=== PATIENT | female | born 1965 | race Caucasian/White ===

== ENCOUNTER → 2017-11-01 | Outpatient (CLI) | payer MEDICAID ==
[2016-07-11 12:14] VITALS: BMI 24.3
[~2017-11-01] MED LIST: ACE325 PO; ACE500 PO; ACET-1966 PO; ALB6.7R INH; ASCO100T PO; ASCO500C8 PO; ASP81 PO; ASPI-1441 PO; BACDS PO; CETI-176 PO; CIP500 PO; CIPR100T4 PO; CLI150 PO; CLIN-1 PO; DIP25 PO; DM H PO; DOC240 PO; DOCU-416 PO; ESCI5TAB10 PO; EUCA170O5 TP; FOL1 PO; FOLI-68 PO; GUAI-225 PO; GUAI600T48 PO; HYDR50CA47 PO; IBU200 PO; IBU600 PO; IBUP-1671 PO; LEVO500T PO; LID5T TOP; LOR1 PO; LOR10 PO; LOR2I IV; LOR5 PO; LORA-1221 PO; LORA-633 PO; MAG-65 PO; MELA3TAB31 PO; MIRT-18 PO; MOMR; MULT-1319 PO; MULT-7 PO; MULT1CAP41 PO; MULT1CAP59 PO; MYLL PO; NAPR-1043 PO; NIC10R INH; NYQUIL; OLA5 PO; OLAN10TA19 PO; PAN40 PO; PHEN30SP NS; PRO20 PO; PRO25 PO; PROC10TA95 PO; PROM12.546 PO; PROP10TA58 PO; PROP1VIA IV; PROVENTIL MDI; QUET25TA30 PO; QUET50TA21 PO; RISP-29 PO; RISP-32 PO; RISP-34 PO; RISP0.5T82 PO; RONDEC DM; SALSP; SER50 PO; SUC1 PO; SUCR1TAB51 PO; SULF-170 PO; SULF-198 PO; THIA100T2 PO; URISTAT; ZOL5 PO; [UNRECOGNIZED DRUG - CODE] PO
== END ==
LOC: LAB 14:56
PROVIDERS: ATTEND Nurse Practitioner Family
DX: E03.9 Hypothyroidism, unspecified (principal); N18.9 Chronic kidney disease, unspecified
CPT/HCPCS: 36415; 82040; 82247; 82310; 82374; 82435; 82565; 82947; 84075; 84132; 84155; 84295; 84443; 84450; 84460; 84520

== ENCOUNTER → 2017-11-25 | Outpatient (REF) | payer MEDICAID ==
[2016-07-11 12:14] VITALS: BMI 24.3
== END ==
LOC: ZZSTITCHES 16:09
PROVIDERS: ATTEND Physician Assistant
DX: N39.0 Urinary tract infection, site not specified (principal)
CPT/HCPCS: 87088

== ENCOUNTER 2017-11-29 01:27 | Emergency (ER) | payer MEDICAID ==
[2016-07-11 12:14] VITALS: Wt 67.1 kg
[2017-11-29] MEDS ORDERED: CIPR-214 PO (01:42)
[2017-11-29] MEDS ORDERED: RISP3TAB55 PO (01:42)
--- NOTE | 2017-11-29 01:44 | ER Report ---
History and Physical Time Seen By MD: 01:39 Hx. of Stated Complaint: patient started having heart palpatations around 0100; patient had taken trazodone around 2000 patient states that she doesnt think it was working so took a second trazodone around 2130; patient states that she had a bad dream and woke up 1230 and "heart was racing". HPI/ROS CHIEF COMPLAINT: racing heart HISTORY OF PRESENT ILLNESS: This is a 52 year old female. She came to the ER tonight because of a racing heart. She was thinking that it may be due to a new medicine. She took Trazodone for the first time tonight. The dose is 50mg. She took a second dose tonight prior to going to bed because she did not feel like it was working. First does at 2000 hours, second dose at 2130 hours. She slept, but had a very bad dream and awoke from this with her heart racing. She does get very bad dreams and night terrors. The heart rate did not slow down. She says this same thing has happened in the past. Because of her schizoaffective disorder and anxiety. She has been on both Propranolol and Ativan in the past. Stated that the Propranolol made her heart race faster, and only worked with the addition of Ativan. She says than no one will prescribe her Ativan anymore. She is having a little bit of discomfort in her shoulder and chest. She is not short of breath. REVIEW OF SYSTEMS: Constitutional: No fever or chills. Eyes: No vision changes. ENT: No sore throat. No congestion. Cardiovascular: As above. Respiratory: No cough. Gastrointestinal: No abdominal pain. No nausea or vomiting. Genitourinary: No dysuria. Musculoskeletal: No back pain. Skin: No rashes. Neurological: No numbness. No weakness. Allergies: Coded Allergies: Penicillins (Verified Allergy, Mild, 11/29/17) codeine (Verified Allergy, Mild, 11/29/17) Home Meds Active Scripts Metoprolol Succinate (METOPROLOL SUCCINATE) 25 Mg Tab.er.24h, 1 TAB PO QDAY, # 30 TAB 0 Refills Prov:MOSES LIZAMA MD 11/29/17 Reported Medications Risperidone (RISPERIDONE) 3 Mg Tablet, 3 MG PO 11/29/17 Ciprofloxacin Hcl (CIPROFLOXACIN HCL) 500 Mg Tablet, 250 MG PO 1-2XD, TAB 11/29/17 Phenylephrine Hcl (NASAL SPRAY) 30 Ml [place], 1 SPRAY NS PRN Y for DISCOMFORT, SPRAY 04/09/17 Ibuprofen (MOTRIN IB) 200 Mg Tablet, 3 TAB PO Q8H Y for PAIN 04/09/17 Discontinued Reported Medications Cetirizine Hcl (ZYRTEC) 10 Mg Tablet, 10 MG PO QDAY, TAB 04/09/17 Hydroxyzine Pamoate (VISTARIL) 50 Mg Capsule, 50-100 MG PO QHS Y for INSOMNIA, CAPSULE 04/09/17 Acetaminophen (TYLENOL) 325 Mg Tablet, 650 MG PO Q4H Y for PAIN, TAB 04/09/17 Risperidone (RISPERDAL M-TAB) 1 Mg Tab.rapdis, 1 MG PO Q6H Y for AGITATION/ PSYCHOSIS 04/09/17 Nicotine (NICOTROL) 10 Mg/Inh Ctr, 10 MG INH PRN Y for NICOTINE REPLACEMENT 04/09/17 Mag Hydrox/Aluminum Hyd/Simeth (Maalox Advanced Suspension) 200 Mg-200 Mg-20 Mg/ 5 Ml Oral.susp, 30 ML PO Q4H Y for DYSPEPSIA 04/09/17 Thiamine Mononitrate (VITAMIN B-1) 100 Mg Tablet, 100 MG PO DAILY 04/09/17 Multivitamin (MULTIVITAMINS) 1 Each Capsule, 1 EACH PO DAILY, CAPSULE 04/09/17 Risperidone (RISPERDAL) 1 Mg Tablet, 1 MG PO QAM 04/09/17 Risperidone (RISPERDAL) 2 Mg Tablet, 2 MG PO QHS 04/09/17 Melatonin (MELATONIN) 3 Mg Tablet, 3 MG PO QHS 04/09/17 Folic Acid (FOLIC ACID) 1 Mg Tablet, 1 MG PO QDAY, TAB 04/09/17 Docusate Sodium (COLACE) 100 Mg Capsule, 100 MG PO BID, CAPSULE 04/09/17 Reviewed Nurses Notes: Yes Hx Smoking: Yes Smoking Status: Current: Every Day Smoker Exposure to Second Hand Smoke?: Yes Hx Substance Use Disorder: Yes Hx Alcohol Use: Yes Constitutional Vital Sign - Last 24 Hours 11/29/17 11/29/17 11/29/17 11/29/17 01:33 01:33 01:57 02:00 Temp 98.3 Pulse 122 109 Resp 19 B/P (MAP) 120/48 120/48 (72) 143/100 (114) Pulse Ox 93 92 O2 Delivery Room Air 11/29/17 11/29/17 11/29/17 11/29/17 02:20 02:30 02:35 03:00 Pulse 102 Resp 11 B/P (MAP) 124/71 (88) 129/91 (104) 122/78 (93) Pulse Ox 88 11/29/17 03:05 Pulse 106 Resp 93 Pulse Ox 92 Physical Exam General Appearance: The patient is alert. No acute distress. Eyes: Pupils are equal, round. Reactive to light. No pallor, injection or icterus. Extraocular movements are intact. ENT: Mucous membranes are moist. Normal oral mucosa. Posterior oropharynx is normal. Normal tympanic membranes and canals. Neck: Supple and non tender. Respiratory: Lungs are clear to auscultation. Cardiovascular: Tachycardia, but regular. On monitor with occasional PVCs. No murmurs, gallops or rubs. Normal capillary refill. Gastrointestinal: Abdomen is soft and non tender. Nondistended. Normal active bowel sounds. Neurological: Alert and oriented x3. No focal neurologic deficits Skin: Warm and dry. Musculoskeletal: Extremities are nontender. DIFFERENTIAL DIAGNOSIS: After history and physical exam, differential diagnosis was considered for tachycardia, possible medication side effect, possible due to night terrors, possibly similar to prior tachycardic events due to anxiety. She is also taking Cipro for a urinary tract infection, just started this medication as well, but symptoms seem to be improving. Medical Decision Making Data Points Result Diagram: 11/29/17 0203 11/29/17 0203 Laboratory Hematology Test 11/29/17 02:03 Red Blood Count 4.40 M/uL (4.17-5.56) Mean Corpuscular Volume 96.6 fL (80.0-96.0) Mean Corpuscular Hemoglobin 33.9 pg (26.0-33.0) Mean Corpuscular Hemoglobin Concent 35.1 g/dL (32.0-36.0) Red Cell Distribution Width 13.8 % (11.5-14.5) Mean Platelet Volume 9.1 fL (7.2-11.1) Neutrophils (%) (Auto) 47.8 % (39.4-72.5) Lymphocytes (%) (Auto) 37.6 % (17.6-49.6) Monocytes (%) (Auto) 8.8 % (4.1-12.4) Eosinophils (%) (Auto) 5.1 % (0.4-6.7) Basophils (%) (Auto) 0.7 % (0.3-1.4) Nucleated RBC Relative Count (auto) 0.0 /100WBC Neutrophils # (Auto) 3.9 K/uL (2.0-7.4) Lymphocytes # (Auto) 3.1 K/uL (1.3-3.6) Monocytes # (Auto) 0.7 K/uL (0.3-1.0) Eosinophils # (Auto) 0.4 K/uL (0.0-0.5) Basophils # (Auto) 0.1 K/uL (0.0-0.1) Nucleated RBC Absolute Count (auto) 0.00 K/uL D-Dimer Quantitative (PE/DVT) 0.49 ug/ml (0-0.50) Sodium Level 139 mmol/L (137-145) Potassium Level 3.7 mmol/L (3.5-5.0) Chloride Level 100 mmol/L (98-107) Carbon Dioxide Level 27 mmol/L (22-31) Blood Urea Nitrogen 16 mg/dl (7-18) Creatinine 1.20 mg/dl (0.52-1.04) Glomerular Filtration Rate Calc 47.6 Random Glucose 99 mg/dl (75-110) Calcium Level 10.1 mg/dl (8.4-10.2) Total Bilirubin 0.4 mg/dl (0.2-1.3) Aspartate Amino Transf (AST/SGOT) 21 U/L (0-35) Alanine Aminotransferase (ALT/SGPT) 24 U/L (0-56) Alkaline Phosphatase 75 U/L (0-126) Troponin I < 0.012 ng/ml Total Protein 7.5 gm/dl (6.3-8.2) Albumin 4.1 g/dl (3.5-5.0) Chemistry Test 11/29/17 02:03 White Blood Count 8.3 k/uL (4.5-11.0) Red Blood Count 4.40 M/uL (4.17-5.56) Hemoglobin 14.9 g/dL (12.0-16.0) Hematocrit 42.5 % (34.0-47.0) Mean Corpuscular Volume 96.6 fL (80.0-96.0) Mean Corpuscular Hemoglobin 33.9 pg (26.0-33.0) Mean Corpuscular Hemoglobin Concent 35.1 g/dL (32.0-36.0) Red Cell Distribution Width 13.8 % (11.5-14.5) Platelet Count 179 K/uL (150-450) Mean Platelet Volume 9.1 fL (7.2-11.1) Neutrophils (%) (Auto) 47.8 % (39.4-72.5) Lymphocytes (%) (Auto) 37.6 % (17.6-49.6) Monocytes (%) (Auto) 8.8 % (4.1-12.4) Eosinophils (%) (Auto) 5.1 % (0.4-6.7) Basophils (%) (Auto) 0.7 % (0.3-1.4) Nucleated RBC Relative Count (auto) 0.0 /100WBC Neutrophils # (Auto) 3.9 K/uL (2.0-7.4) Lymphocytes # (Auto) 3.1 K/uL (1.3-3.6) Monocytes # (Auto) 0.7 K/uL (0.3-1.0) Eosinophils # (Auto) 0.4 K/uL (0.0-0.5) Basophils # (Auto) 0.1 K/uL (0.0-0.1) Nucleated RBC Absolute Count (auto) 0.00 K/uL D-Dimer Quantitative (PE/DVT) 0.49 ug/ml (0-0.50) Glomerular Filtration Rate Calc 47.6 Calcium Level 10.1 mg/dl (8.4-10.2) Total Bilirubin 0.4 mg/dl (0.2-1.3) Aspartate Amino Transf (AST/SGOT) 21 U/L (0-35) Alanine Aminotransferase (ALT/SGPT) 24 U/L (0-56) Alkaline Phosphatase 75 U/L (0-126) Troponin I < 0.012 ng/ml Total Protein 7.5 gm/dl (6.3-8.2) Albumin 4.1 g/dl (3.5-5.0) Coagulation Test 11/29/17 02:03 D-Dimer Quantitative (PE/DVT) 0.49 ug/ml EKG/Imaging EKG Interpretation 12 lead EKG: Rhythm: Sinus tachycardia, rate 106 [place]: normal QRS: normal ST segments: normal Imaging CHEST: Indication: Chest pain and tachycardia. Technique: Frontal and lateral views were obtained. Comparison: None. Skeletal and soft tissue structures: There is minimal dextroscoliosis in the thoracic spine. No acute skeletal deformity is identified. Heart and mediastinum: Within normal limits. Lung rooney: Well-expanded and clear. No focal opacities. Pleural spaces: Unremarkable. Impression: No acute process. Report Dictated By: Gibson Jorge MD at 11/29/2017 2:36 AM ED Course/Re-evaluation Clinical Indication for ER IV: Hydration, IV Access ED Course The patient had an IV started. Labs were obtained. CBC is normal, chemistry panel also shows normal electrolytes. BUN and creatinine slightly elevated at 16 and 1.2. Normal glucose and liver function tests. D-dimer is negative. Troponin is negative. TSH is pending. Obtained and shows simple sinus tachycardia without any other changes. Her chest x-ray was negative for any acute problems as well. She did receive a liter of normal saline. We talked about different possible causes. I would like her to not take the trazodone until she follows up with her regular doctor tomorrow. She does have a scheduled appointment. She will continue the Cipro. I would like to start her on a little dose of metoprolol 25 mg. Decision to Disposition Date: November 29, 2017 Decision to Disposition Time: 03:01 Depart Departure Latest Vital Signs Vital Signs Date Time Temp Pulse Resp B/P (MAP) Pulse Ox O2 Delivery O2 Flow Rate FiO2 11/29/17 03:05 106 93 92 11/29/17 03:00 122/78 (93) 11/29/17 01:33 98.3 Room Air Impression: Primary Impression: Tachycardia Condition: Improved Disposition: HOME OR SELF-CARE Referrals: EWELINA ROTH (PCP) New Scripts Metoprolol Succinate (METOPROLOL SUCCINATE) 25 Mg Tab.er.24h 1 TAB PO QDAY, #30 TAB 0 Refills Prov: MOSES LIZAMA MD 11/29/17 Patient Instructions: Atrial Tachycardia (ED) Additional Instructions: We did not find any major problems tonight. Your heart rate came down to normal, but every once in a while would still run a little high. We would like to have you start a medicine to help slow this down a little. Metoprolol 25mg once a day. Please follow-up with your regular doctor for re-evaluation. Trazodone usually does not cause problems like this. Stop the Trazodone until you can discuss with your doctor whether you should continue this or not. MOSES LIZAMA MD November 29, 2017 01:44
[2017-11-29 02:20] LABS: PLATELET COUNT, AUTOMATED 179 K/uL (150-450)
[2017-11-29] MEDS ORDERED: NS(*) 0.9% 1000 ML BAG 1,000 ML IV ONE (02:35)
--- NOTE | 2017-11-29 02:45 | RADIOLOGY IMAGING REPORT ---
FACILITY: [facility] [place] PATIENT NAME: Carlos Colvin : 1965 MR: [id number] V: [id number] EXAM DATE: ORDERING PHYSICIAN: MOSES LIZAMA TECHNOLOGIST: Location: Patient: Carlos Colvin : 1965 Visit/Account:[id number] Date of Sevice: 11/29/2017 CHEST: Indication: Chest pain and tachycardia. Technique: Frontal and lateral views were obtained. Comparison: None. Skeletal and soft tissue structures: There is minimal dextroscoliosis in the thoracic spine. No acute skeletal deformity is identified. Heart and mediastinum: Within normal limits. Lung rooney: Well-expanded and clear. No focal opacities. Pleural spaces: Unremarkable. Impression: No acute process. Report Dictated By: Gibson Jorge MD at 11/29/2017 2:36 AM Report E-Signed By: Gibson Jorge MD at 11/29/2017 2:39 AM WSN:[id number]
[2017-11-29 03:00] VITALS: BP 122/78
[2017-11-29] MEDS ORDERED: METOPROLOL SUCC XL 25 MG TABCR PO ONE (03:05)
[2017-11-29] MEDS ORDERED: METO25TA23 PO (03:05)
--- NOTE | 2017-11-29 03:48 | EKG ---
FACILITY: [facility] PATIENT NAME: TRICIA AKHTAR : [id number] MR: [id number] V: [id number] EXAM DATE: ORDERING PHYSICIAN: MOSES LIZAMA TECHNOLOGIST: SARA [place] Reason : CARDIAC Blood Pressure : / mmHG Vent. Rate : 106 BPM Atrial Rate : 106 BPM P-R Int : 174 ms QRS Dur : 076 ms QT Int : 338 ms P-R-T Axes : 052 054 015 degrees QTc Int : 448 ms Sinus tachycardia Possible Left atrial enlargement Borderline ECG When compared with ECG of 17-MAR-2017 09:06, No significant change was found Confirmed by JONATHAN ROSEN ([id number]) on 11/29/2017 6:35:38 AM Referred By: Confirmed By:JONATHAN ROSEN
== END 2017-11-29 03:14 | disposition home or self-care (01) ==
LOC: ER 02:20
DX: R00.0 Tachycardia, unspecified (principal); F17.210 Nicotine dependence, cigarettes, uncomplicated
CPT/HCPCS: 71046; 84443; 84484; 85025; 85379; 93005; 96360; 99284; J7030; 82040; 82247; 82310; 82374; 82435; 82565; 82947; 84075; 84132; 84155; 84295; 84450; 84460; 84520

== ENCOUNTER 2018-01-25 11:15 | Outpatient (RCR) | payer MEDICAID ==
[2016-07-11 12:14] VITALS: BMI 24.3
--- NOTE | 2018-01-22 17:26 | PT INITIAL EVALUATION ---
MEDICAL DIAGNOSIS: R26.89 Balance problem, R29.898 Weakness B LE, G62.9 Peripheral neuropathy TREATMENT DIAGNOSIS: Same DATE OF ONSET: 06/29/17 SUBJECTIVE: Carlos Colvin presents to PT for altered balance and gait, from Arnold-Chiari malformation I, worsened with playing racIsai in June,. Since then, she relates that she's been falling, worse with uneven ground and low light settings. She's been more sedentary in the last year due to her imbalance and would like to improve her ambulation endurance, gait stability on uneven surfaces, low light settings. Pain location is base of occiput, forehead to occiput and described as ache with exertion REHAB PROBLEM LIST: Decreased Strength, Decreased Endurance, Balance, Kinesthetics, Function, Altered Gait PREVIOUS MEDICAL HISTORY: Arnold-Chiari malformation, mental health issues, L kidney removal 1994, , gall bladder surgery. OCCUPATION: Disabled OBJECTIVE: Posture: ER R LE 35 degrees, pelvis rotated R, hangs on hip ligaments. ROM: Trunk and LE's AROM WNL. Strength: LE's 5-/5. Special Tests: Normal eye tracking, gaze stabilization, VOR x1, x2. Gait: Functional Gait Index 51% impairment, with weaving with head motion, turns in 3 sec with adaptive steps, weaves l with forward gait with eyes closed , catches R foot with backward gait. She descends stairs with handrail scuffing her heels to perceive the step (even with contrasting tape on the steps). Balance: Increased postural sway laterally, L and R, static stand on firm surface eyes shut, in all directions while standing on foam with eyes open. Single leg stand 7 seconds R, 10 seconds L. Tandem stand 5 seconds R, 15 seconds L. Balance testing with Carlos reporting she was fatigued. ASSESSMENT: Carlos Colvin presents with altered gait and balance from Arnold- Chiari I malformation affecting kinesthetics, vision, also trunk and LE weakness, peripheral neuropathy. She's a good candidate to improve trunk alignment, proprioception above the ankles, postural control to ambulate more safely on uneven surfaces, low light settings. Short Term Goals 4 weeks: Carlos ambulates with minimal trunk weaving during gait with head motion, reports ambulation in low light with cane is steady. 6 weeks: Randall demonstrates stepping balance reactions of firm surfaces, demonstrates corrective balance reactions ambulating on uneven surfaces. Patient's Goals Be more steady in gait. PLAN: Patient to be seen for Strengthening/condition, Spinal Stabilization, Stretching, Neuromuscular Re-ed, Gait Trg/Balance Trg, HEP 2x/Week for 6-8 weeks Thank you for this referral. If you have any questions, comments, or concerns about this report or plan, please contact me at . [facility]
[~2018-01-25 11:15] MED LIST changes: +CIPR-214 PO; +METO25TA23 PO; +RISP3TAB55 PO
--- NOTE | 2018-02-05 13:18 | PT PLAN OF CARE ---
Physician: Dr. Rosa Vuong Patient is being seen: twice Therapist: Lissy Preston, PT Medical Diagnosis: R26.89 Balance problem, R29.898 Weakness B LE, G62.9 Peripheral neuropathy Treatment Diagnosis: Same Date of Onset: 06/29/17 Date of Initial Evaluation: 01/22/18 Date patient was last seen: 01/25/18 Number of treatments: 2 Number of cancellations/No shows: 2 INTERVENTIONS: Neuromuscular Re-ed, Therapeutic exercise GOALS: All not met: 4 weeks: Carlos ambulates with minimal trunk weaving during gait with head motion, reports ambulation in low light with cane is steady. 6 weeks: Randall demonstrates stepping balance reactions of firm surfaces, demonstrates corrective balance reactions ambulating on uneven surfaces. PATIENT'S GOAL: Be more steady in gait. not met Patient Compliance: Fair Prognosis: Good Reasons for discontinuing therapy: S: Carlos cancelled all her appointments, relating she didn't feel good and found the vestibular exercises created a headache. O: Carlos had weaving with gait with head motion, and reported it created headache. She tolerated isometric core strengthening exercises only, relating they were difficult. A/P: Carlos discharged herself from PT. I'll close her case. Thank you. SAWYER
== END 2018-01-25 18:00 | disposition home or self-care (01) ==
LOC: PT 11:15
PROVIDERS: ATTEND Psychiatry & Neurology Neurology
DX: R29.898 Other symptoms and signs involving the musculoskeletal system (principal); G62.9 Polyneuropathy, unspecified; R26.89 Other abnormalities of gait and mobility; R29.6 Repeated falls; Q07.00 Arnold-Chiari syndrome without spina bifida or hydrocephalus
CPT/HCPCS: 97162

== ENCOUNTER 2018-04-17 09:43 | Outpatient (RCR) | payer MEDICAID ==
[2016-07-11 12:14] VITALS: BMI 24.3
--- NOTE | 2018-04-24 10:30 | SWALLOW EVALUATION ---
SPEECH THERAPY ASSESSMENT DYSPHAGIA EVALUATION Physician: Dr. Rosa Vuong MD Clinician: Meliza Mckeon MS, [facility] ATTENDANT Type of Assessment: Dysphagia Evaluation Patient: Carlos Colvin : 1965, 52yrs Evaluation Date: 04-17-18 BACKGROUND The patient is an 52 year old female referred for ST 2/ worsening symptoms of oropharyngeal dysphagia including: globus sensation, poor AP transit of solids bolus, difficulty initiation swallow, coughing following swallow with pt reporting food/water, "goes down the wrong way all the time." The patient received a modified barium swallow [facility] with results WNL though some lingual discoordination with resulting posterior lingual residue was witnessed. PREVIOUS LEVEL OF FUNCTION: Primary Medical Diagnosis: Arnold Chiari malformation,Type 1, Prior Level of Function: Hx positive for s/s of dysphagia with increasing symptoms over the last several months. Medical Complications/Past Medical History: See chart for details Pain Scale (0-10): 0 LOC / Participation: alert cooperative Follows instructions: yes Orientation: oriented to person, place, time, situation Functional Communication Deficits impact swallow function/safety, or response to therapy: No VOICE Vocal Deficits: No Changes to vocal quality: denies Maximum Phonation time: 15sec S/Z Ratio: 1.09 WNL DYSPHAGIA Dysphagia Risk Evaluation Protocol DREP: Water Swallow Test: Pass, Puree Swallow Test: Pass, Solids Swallow Test: Pass RSST (Repetitive Saliva Swallow Test): Value greater or equal to than 3 times/30 sec = pass Sialorrhea: No Xerostomia: No Supplemental Oxygen Use: No Respiratory Rate: Remains stable throughout food/liquid trials. 1 COPD Dx: No Oral Structure and Function: Within functional limits for speech and swallow. Diadochokinesis: Alternating Rate: mildly reduced, Sequential Rate: WNL Pain with Swallow: Denies Respiratory/Swallow Coordination: Typically patterned (ie. exhale/swallow/exhale) Oral Stage Oral Stage Dysphagia: Poor AP transit with lingual residues requiring second swallow to clear. Difficulty initiating swallow Self Feeds: Yes Pharyngeal Stage Pharyngeal Stage Dysphagia: Reports symptoms including choking with foods. None witnessed on radiologic evaluation Esophageal Stage Pt reports she experiences symptoms of reflux on a daily basis with LPR "sometimes." She takes OTC medications to tx. She reports she doesn't think she has reported this to her physician ST ASSESSMENT SUMMARY DYSPHAGIA Dysphagia Risk Evaluation Protocol DREP: Water Swallow Test: Fail, Puree Swallow Test: Pass, Solids Swallow Test: Fail. Indications of oropharygeal dyshpagia including delayed onset of swallow, poor AP transit, multiple swallows, globus sensation. Pt reports she experiences symptoms of reflux on a daily basis with LPR "sometimes." She takes OTC medications to tx. She reports she doesn't think she has reported this to her physician *Aspiration Risk: Increased risk of aspiration second to oral stage dysphagia and pt reports choking with foods/liquids, "all the time." Speech Therapy Need Due to the high association between dysphagia and Arnold Chiari malformation type1 in addition to the patient's reports of oropharyngeal dysphagia, it is recommended this patient receive ST to address recent increase in dysphagia symptoms. RECOMMENDATIONS ST 2wk6 Prognosis: Fair PLAN OF CARE Short Term Goals 1. The patient will participate in an 6wk dysphagia exercise based therapy program to address oropharyngeal dysphagia. 1. The patient will receive safe swallow and modified diet education and demonstrate verbal/nonverbal comprehension. Long-Term Goals 1. The patient will function independently in work/social / education/ self- care skills. Fci Goal The patient will consume regular food and liquid diet without s/s of dysphagia. Thank you for this referral. Please call [phone] Meliza Mckeon M.S., [facility] ATTENDANT Physician Signature Date MTDD
== END 2018-04-17 18:00 | disposition home or self-care (01) ==
LOC: PT 09:43
PROVIDERS: ATTEND Psychiatry & Neurology Neurology
DX: R13.10 Dysphagia, unspecified (principal); R26.81 Unsteadiness on feet; R26.89 Other abnormalities of gait and mobility

== ENCOUNTER → 2018-04-19 | Outpatient (CLI) | payer MEDICAID ==
[2016-07-11 12:14] VITALS: BMI 24.3
== END ==
LOC: RESP 19:51
PROVIDERS: ATTEND Nurse Practitioner Psychiatric/Mental Health
DX: G47.30 Sleep apnea, unspecified (principal)

== ENCOUNTER 2019-03-18 13:15 | Observation (INO) | payer MEDICAID ==
[2016-07-11 12:14] VITALS: Ht 180.3 cm; Wt 88.0 kg
[~2019-03-18] VITALS: Ht 180.3 cm; Wt 88.0 kg
--- NOTE | 2019-03-18 13:22 | ER Report ---
History and Physical Time Seen By MD: 13:18 HPI/ROS CHIEF COMPLAINT: Constipation HISTORY OF PRESENT ILLNESS: This is a 53-year-old female presents to emergency department for concerns of constipation. Patient states that has been since mid January since she's actually had a normal bowel movement, has progressively been getting more difficult, she states she's not had a real bowel movement in a couple of weeks. She saw her PCP yesterday was given some mag citrate yesterday and today, no resolution, she had some small liquid stool today however nothing substantial. She states that she has been bloated intermittent epigastric discomfort, no nausea or vomiting. No fevers or chills. No rashes. Denies chest pain or shortness of breath. No changes in her medications. REVIEW OF SYSTEMS: Constitutional: No fever, no chills. Eyes: No discharge. ENT: No sore throat. Cardiovascular: No chest pain, no palpitations. Respiratory: No cough, no shortness of breath. Gastrointestinal: As above. Genitourinary: No hematuria. Musculoskeletal: No back pain. Skin: No rashes. Neurological: No headache. Allergies: Coded Allergies: Penicillins (Verified Allergy, Mild, 11/29/17) codeine (Verified Allergy, Mild, 11/29/17) Home Meds Active Scripts Metoprolol Succinate (METOPROLOL SUCCINATE) 25 Mg Tab.er.24h, 1 TAB PO QDAY, #30 TAB 0 Refills Prov:MOSES LIZAMA MD 11/29/17 Reported Medications Olanzapine (ZYPREXA) 10 Mg Tablet, 10 MG PO QDAY 03/18/19 Risperidone (RISPERIDONE) 3 Mg Tablet, 3 MG PO 11/29/17 Discontinued Reported Medications Ciprofloxacin 500 Mg Tab (CIPROFLOXACIN 500 MG TAB) 500 Mg Tablet, 250 MG PO 1- 2XD, TAB 11/29/17 Phenylephrine Hcl (NASAL SPRAY) 30 Ml [place], 1 SPRAY NS PRN PRN for DISCOMFORT, SPRAY 04/09/17 Ibuprofen (MOTRIN IB) 200 Mg Tablet, 3 TAB PO Q8H PRN for PAIN 04/09/17 Past Medical/Surgical History The patient has a past medical surgical history of seizures, environmental allergies, asthma, pneumonia as a baby, chronic urinary tract infections, intermittent ear pain, schizoaffective disorder, depression, cholecystectomy, , left kidney nephrectomy. Reviewed Nurses Notes: Yes Hx Smoking: Yes Smoking Status: Current: Every Day Smoker Exposure to Second Hand Smoke?: Yes Hx Substance Use Disorder: Yes Hx Alcohol Use: Yes Constitutional Vital Sign - Last 24 Hours 03/18/19 13:20 Temp 98.1 Pulse 103 Resp 18 B/P (MAP) 147/94 Pulse Ox 90 O2 Delivery Room Air Physical Exam General Appearance: The patient is alert, has no immediate need for airway protection and no signs of toxicity. Eyes: Pupils equal and round no pallor or injection. ENT, Mouth: Mucous membranes are moist. Respiratory: There are no retractions, lungs are clear to auscultation. Cardiovascular: Regular rate and rhythm. No murmurs, clicks or rubs. Gastrointestinal: Abdomen is soft, round and non tender, no masses, bowel sounds normal. Neurological: Alert and oriented 4. Moving all extremities. Following. No focal neurodeficits. Skin: Warm and dry, no rashes. Musculoskeletal: Neck is supple non tender. Extremities are nontender, nonswollen and have full range of motion. DIFFERENTIAL DIAGNOSIS: After history and physical exam differential diagnosis was considered for constipation, bowel obstruction, hiatal hernia. Medical Decision Making Data Points Result Diagram: 03/18/19 1345 03/18/19 1345 Laboratory Hematology Test 03/18/19 13:45 White Blood Count 6.9 k/uL (4.5-11.0) Red Blood Count 4.46 M/uL (4.17-5.56) Hemoglobin 15.5 g/dL (12.0-16.0) Hematocrit 43.8 % (34.0-47.0) Mean Corpuscular Volume 98.2 fL (80.0-96.0) H Mean Corpuscular Hemoglobin 34.7 pg (26.0-33.0) H Mean Corpuscular Hemoglobin Concent 35.4 g/dL (32.0-36.0) Red Cell Distribution Width 14.5 % (11.5-14.5) Platelet Count 255 K/uL (150-450) Mean Platelet Volume 9.0 fL (7.2-11.1) Neutrophils (%) (Auto) 58.3 % (39.4-72.5) Lymphocytes (%) (Auto) 31.4 % (17.6-49.6) Monocytes (%) (Auto) 8.0 % (4.1-12.4) Eosinophils (%) (Auto) 1.4 % (0.4-6.7) Basophils (%) (Auto) 0.9 % (0.3-1.4) Nucleated RBC Relative Count (auto) 0.1 /100WBC Neutrophils # (Auto) 4.0 K/uL (2.0-7.4) Lymphocytes # (Auto) 2.2 K/uL (1.3-3.6) Monocytes # (Auto) 0.6 K/uL (0.3-1.0) Eosinophils # (Auto) 0.1 K/uL (0.0-0.5) Basophils # (Auto) 0.1 K/uL (0.0-0.1) Nucleated RBC Absolute Count (auto) 0.01 K/uL Chemistry Test 03/18/19 13:45 Sodium Level 137 mmol/L (137-145) Potassium Level 3.8 mmol/L (3.5-5.0) Chloride Level 98 mmol/L (98-107) Carbon Dioxide Level 29 mmol/L (22-31) Blood Urea Nitrogen 8 mg/dl (7-18) Creatinine 1.00 mg/dl (0.52-1.04) Glomerular Filtration Rate Calc 58.5 Random Glucose 102 mg/dl (75-110) Calcium Level 9.7 mg/dl (8.4-10.2) Total Bilirubin 0.6 mg/dl (0.2-1.3) Aspartate Amino Transf (AST/SGOT) 26 U/L (0-35) Alanine Aminotransferase (ALT/SGPT) 34 U/L (0-56) Alkaline Phosphatase 130 U/L (0-126) Total Protein 8.2 g/dl (6.3-8.2) Albumin 4.5 g/dl (3.5-5.0) Urinalysis Test 03/18/19 14:47 Urine Color Straw Urine Clarity Clear Urine pH 8.0 pH (4.8-9.5) Urine Specific [place] 1.005 Urine Protein Negative mg/dL (NEGATIVE) Urine Glucose (UA) Negative mg/dL (NEGATIVE) Urine Ketones Negative mg/dL (NEGATIVE) Urine Blood Negative (NEGATIVE) Urine Nitrite Negative (NEGATIVE) Urine Bilirubin Negative (NEGATIVE) Urine Urobilinogen Negative mg/dL (0.2-1.9) Urine Leukocyte Esterase Moderate (NEGATIVE) Urine RBC <1 /HPF (0-2/HPF) Urine WBC 15 /HPF (0-5/HPF) Urine Squamous Epithelial Cells Many /LPF (</=FEW) Urine Transitional Epithelial Cells Many /LPF (NONE-FEW) Urine Bacteria Few /HPF (NONE-FEW) Urine Mucus None /HPF (NONE-FEW) EKG/Imaging Imaging FACILITY: [facility] - [place] PATIENT NAME: Carlos Colvin : 1965 MR: [id number] V: [id number] EXAM DATE: ORDERING PHYSICIAN: CHERIE JOHNSON TECHNOLOGIST: Location: [facility] Patient: Carlos Colvin : 1965 Visit/Account:[id number] Date of Sevice: 03/18/2019 CT ABDOMEN PELVIS W/ CON HISTORY: eval for obstruction TECHNIQUE: Following administration of IV contrast contiguous axial images acquired through the abdomen/pelvis. Coronal and sagittal reformatting also performed.Dose Lowering Technique One of the following dose optimization techniques was utilized in the performanc e of this exam: Automated exposure control; adjustment of the mA and/or kV according to the patient's size; or use of an iterative reconstruction technique. Specific details can be referenced in the facility's radiology CT exam operational policy. CONTRAST: 75 mL Isovue-370 COMPARISON: CT abdomen and pelvis August 01, 2007 FINDINGS: Visualized lung bases: There Is coarse linear stranding in the inferior right middle lobe which may represent scarring versus atelectasis Hepatobiliary: Postsurgical changes from a cholecystectomy Spleen: Negative. Adrenals: Negative. Pancreas: Negative. Kidneys ureters or bladder: Left kidney is not identified and apparently surgically absent. The right renal collecting system and right ureter appear mildly dilated. An obstructing calculus is not seen. Urinary bladder is moderately distended Genitalia: Negative. GI: There is a large amount of fecal material seen throughout the colon which can be seen with constipation versus low-lying obstruction. There does appear to be a focal narrowing in the distal sigmoid colon best appreciated on axial image 14 of series 3 coronal image 65 of series 4 sagittal image 89 of series 5. The small bowel does not appear to be dilated Vessels/spaces/nodes: Negative. Bones/soft tissues: Minimal spondylotic changes of the thoracolumbar spine Additional findings: None pertinent. IMPRESSION: There is a large amount of fecal material throughout colon which can be seen w ith constipation versus a low-lying obstruction. There does appear to be a focal narrowing of the distal sigmoid colon as described above. Colonoscopy may be helpful for further evaluation Postsurgical changes from a left nephrectomy and cholecystectomy The right renal collecting system and right ureter appears mildly dilated. An obstructing calculus is not seen although urinary bladder is moderately distended. This may be physiologic in nature however clinical correlation needed Report Dictated By: Kristin José MD at 03/18/2019 2:55 PM Report E-Signed By: Kristin José MD at 03/18/2019 3:06 PM WSN:[email or web address] ED Course/Re-evaluation Clinical Indication for ER IV: Hydration, IV Access ED Course The patient was admitted to room. A history and physical obtained. Differential diagnoses were considered. An IV was started. A CBC, CMP, UA and CT of the abdomen and pelvis were obtained. A 1 L normal saline bolus was given. CBC showing MCV 98.2, MCH 34.7, chemistry unremarkable, negative UA.Abdomen pelvis CT showing large amount of fecal material throughout the colon consistent with constipation or low-lying obstruction, with focal narrowing of the distal sigmoid colon. I did review the results with the patient, given the patient's history of no bowel movements and unsuccessful mag citrate 2, I did speak with Dr. Mccullough, he is admitted the patient for constipation versus early onset bowel obstruction. The patient was agreeable with this plan of care and admitted the medical floor. Patient has no history of bowel obstructions or constipation nor does she have a history of colonoscopies. 03/18/2019 3:58:[address] Mccullough, the general surgeon on-call, the patient will be admitted to the surgical services for constipation and partial bowel obstruction. Decision to Disposition Date: Mar 18, 2019 Decision to Disposition Time: 15:56 Depart Departure Latest Vital Signs Vital Signs Date Time Temp Pulse Resp B/P (MAP) Pulse Ox O2 Delivery O2 Flow Rate FiO2 03/18/19 13:20 98.1 103 18 147/94 90 Room Air Impression: Primary Impression: Partial bowel obstruction Additional Impression: Constipation Condition: Improved Disposition: Admitted from ER Referrals: EWELINA ROTH (PCP) Problem Qualifiers Primary Impression: Partial bowel obstruction Intestinal obstruction type: other intestinal obstruction Qualified Codes: K56.690 - Other partial intestinal obstruction Additional Impression: Constipation Constipation type: unspecified constipation type Qualified Codes: K59.00 - Constipation, unspecified CHERIE JOHNSON [facility]- Mar 18, 2019 13:22
[2019-03-18] MEDS ORDERED: NS(*) 0.9% 1000 ML BAG 1,000 ML IV ONE (13:40)
[2019-03-18] MEDS ORDERED: IOPAMIDOL 76% 100 ML INFUS BTL 100 ML ONE (13:49)
[2019-03-18 14:12] LABS: PLATELET COUNT, AUTOMATED 255 K/uL (150-450)
--- NOTE | 2019-03-18 15:14 | RADIOLOGY IMAGING REPORT ---
FACILITY: [facility] PATIENT NAME: Carlos Colvin : 1965 MR: [id number] V: [id number] EXAM DATE: ORDERING PHYSICIAN: CHERIE JOHNSON TECHNOLOGIST: Location: [facility] [place] Patient: Carlos Colvin : 1965 Visit/Account:[id number] Date of Sevice: 03/18/2019 CT ABDOMEN PELVIS W/ CON HISTORY: eval for obstruction TECHNIQUE: Following administration of IV contrast contiguous axial images acquired through the abdom en/pelvis. Coronal and sagittal reformatting also performed.Dose Lowering Technique One of the following dose optimization techniques was utilized in the performance of this exam: Autom ated exposure control; adjustment of the mA and/or kV according to the patient's size; or use of an i terative reconstruction technique. Specific details can be referenced in the facility's radiology C T exam operational policy. CONTRAST: 75 mL Isovue-370 COMPARISON: CT abdomen and pelvis August 01, 2007 FINDINGS: Visualized lung bases: There Is coarse linear stranding in the inferior right middle lobe which may r epresent scarring versus atelectasis Hepatobiliary: Postsurgical changes from a cholecystectomy Spleen: Negative. Adrenals: Negative. Pancreas: Negative. Kidneys ureters or bladder: Left kidney is not identified and apparently surgically absent. The right renal collecting system and right ureter appear mildly dilated. An obstructing calculus is not seen. Urinary bladder is moderately distended Genitalia: Negative. GI: There is a large amount of fecal material seen throughout the colon which can be seen with const ipation versus low-lying obstruction. There does appear to be a focal narrowing in the distal sigmoi d colon best appreciated on axial image 14 of series 3 coronal image 65 of series 4 sagittal image 89 of series 5. The small bowel does not appear to be dilated Vessels/spaces/nodes: Negative. Bones/soft tissues: Minimal spondylotic changes of the thoracolumbar spine Additional findings: None pertinent. IMPRESSION: There is a large amount of fecal material throughout colon which can be seen with constipation versus a low-lying obstruction. There does appear to be a focal narrowing of the distal sigmoid colon as d escribed above. Colonoscopy may be helpful for further evaluation Postsurgical changes from a left nephrectomy and cholecystectomy The right renal collecting system and right ureter appears mildly dilated. An obstructing calculus i s not seen although urinary bladder is moderately distended. This may be physiologic in nature howev er clinical correlation needed Report Dictated By: Kristin José MD at 03/18/2019 2:55 PM Report E-Signed By: Kristin José MD at 03/18/2019 3:06 PM WSN:AMICIVN
[2019-03-18] MEDS ORDERED: FLUSH 10 ML SYR IVP PRN (16:05)
[2019-03-18] MEDS ORDERED: NICOTINE 21 MG/24 HR PATCH TD ONE (16:05)
[2019-03-18] MEDS ORDERED: BISACODYL 10 MG SUPP PR ONE (16:05)
[2019-03-18] MEDS ORDERED: ONDANSETRON 4 MG/2 ML VIAL IVP PRN (16:05)
[2019-03-18] MEDS ORDERED: PEG (High)/E-LYTE SOLN 4000 ML PO ONE (16:30)
[2019-03-18 17:15] VITALS: BP 147/94
[2019-03-18] MEDS: NS(*) 0.9% 1000 ML BAG 1,000 ML IV PRN (17:58)
[2019-03-18] MEDS ORDERED: OLAN10TA21 PO (18:51)
[2019-03-18] MEDS ORDERED: OLANZapine 5 MG TAB PO ONE (18:55)
[2019-03-18 19:02] VITALS: BP 149/95
--- NOTE | 2019-03-18 19:17 | Gen Surgery History & Physical ---
History of Present Illness Chief Complaint Constipation History of Present Illness 53-year-old female is brought into the emergency room with chronic constipation that has been worse over the last several weeks. She reports not having had a b owel movement for the last 4 weeks. She normally has one bowel movement a week. She has had chronic constipation for most of her life. She does have schizoaffective disorder and is on chronic medications for this which tend to slow her intestines down. She has never had a colonoscopy. She has no known family history of colorectal cancer or other GI issues. No nausea or vomiting. History Problems: (1) Bipolar 1 disorder Status: Chronic (2) Delusional disorder Status: Chronic (3) Schizoaffective disorder Status: Chronic (4) Tachycardia Status: Chronic (5) Constipation Status: Chronic Home Meds Active Scripts Metoprolol Succinate (METOPROLOL SUCCINATE) 25 Mg Tab.er.24h, 1 TAB PO QDAY, #30 TAB 0 Refills Prov:MOSES LIZAMA MD 11/29/17 Reported Medications Olanzapine (ZYPREXA) 10 Mg Tablet, 10 MG PO QDAY 03/18/19 Risperidone (RISPERIDONE) 3 Mg Tablet, 3 MG PO 11/29/17 Discontinued Reported Medications Ciprofloxacin 500 Mg Tab (CIPROFLOXACIN 500 MG TAB) 500 Mg Tablet, 250 MG PO 1- 2XD, TAB 11/29/17 Phenylephrine Hcl (NASAL SPRAY) 30 Ml [place], 1 SPRAY NS PRN PRN for DISCOMFORT, SPRAY 04/09/17 Ibuprofen (MOTRIN IB) 200 Mg Tablet, 3 TAB PO Q8H PRN for PAIN 04/09/17 Allergies: Coded Allergies: Penicillins (Verified Allergy, Mild, 11/29/17) codeine (Verified Allergy, Mild, 11/29/17) Review of Systems All Systems Reviewed/Normal: Yes, Except as Noted Gastrointestinal: Constipation Exam General Appearance: Alert, Awake, No Acute Distress, Afebrile Neuro: No Gross deficits Eyes: PERRLA GI: Abd Soft and Non-Tender Extremities: Warm, Perfused Psych: Alert & Oriented X3, Appropriate Mood & Affect Medical Decision Making Data Points Result Diagram: 03/18/19 1345 03/18/19 1345 Assessment and Plan Problems: (1) Chronic constipation Status: Chronic Assessment & Plan: 03/18/19: We'll admit to the hospital, start IV fluids, will start a bowel prep to clean out her colon. We'll plan on a colonoscopy in the next day or 2 depending on how long it takes to clean out her colon so that we can evaluate the questionable narrowing in her sigmoid colon seen on CT. We'll then need to look at a chronic bowel regimen to try to improve her bowel function. I have explained this plan as well as colonoscopy to the patient in detail as well as the alternatives, risks, and expected recovery. She indicates her understanding of this discussion and her questions have been answered. She would like to proceed with this plan including colonoscopy during this admission. (2) Abnormal CT scan, sigmoid colon Status: Acute Assessment & Plan: We'll assess with colonoscopy during this admission. Condition Stable Time Spent: < 30 min Venous Thromboembolism VTE Risk Physician Assess for VTE Risk: Yes Patient's VTE Risk: Low VTE Diagnostic Test 2 Days Prior to Admit: No Antithrombotics Is Pt On Any Antithrombotics?: No JONATHAN VALENCIA MD Mar 18, 2019 19:17
[2019-03-18] MEDS ORDERED: RISP4TAB99 PO (19:54)
[2019-03-18] MEDS ORDERED: risperiDONE 1 MG TAB PO ONE (21:10)
[2019-03-18 23:16] VITALS: BP 151/80
[2019-03-19] VITALS (12 sets, daily range): BP systolic 108–150; BP diastolic 69–93
[2019-03-19] MEDS: NS(*) 0.9% 1000 ML BAG 1,000 ML IV PRN (03:42)
[2019-03-19 06:17] LABS: PLATELET COUNT, AUTOMATED 203 K/uL (150-450)
--- NOTE | 2019-03-19 07:05 | General Surgery Progress Note ---
Subjective Progress Notes Subjective No complaints this morning. Bowel prep completed, having liquid stools this morning. Feels cleaned out. Physical Exam Vital Signs Date Time Temp Pulse Resp B/P (MAP) Pulse Ox O2 Delivery O2 Flow Rate FiO2 03/19/19 03:43 86 03/19/19 03:43 99.0 97 12 108/69 (82) Nasal Cannula 1.5 Intake and Output 03/19/19 07:04 Intake Total 3488 ml Balance 3488 ml Intake Oral 1500 ml IV Total 1988 ml # Voids 3 # Bowel Movements 4 General Appearance: Alert, Awake, No Acute Distress, Afebrile GI: Soft and Non-Tender Extremities: Warm, Perfused Result Diagram: 03/19/1952103/19/19521 Assessment and Plan Problems: (1) Chronic constipation Status: Chronic Assessment & Plan: 03/18/19: We'll admit to the hospital, start IV fluids, will start a bowel prep to clean out her colon. We'll plan on a colonoscopy in the next day or 2 depending on how long it takes to clean out her colon so that we can evaluate the questionable narrowing in her sigmoid colon seen on CT. We'll then need to look at a chronic bowel regimen to try to improve her bowel function. I have explained this plan as well as colonoscopy to the patient in detail as well as the alternatives, risks, and expected recovery. She indicates her understanding of this discussion and her questions have been answered. She would like to proceed with this plan including colonoscopy during this admission. 03/19/19: Doing well. Prepped. Will proceed with colonoscopy later this morning. Pt agreeable with proceeding with this plan. (2) Abnormal CT scan, sigmoid colon Status: Acute Assessment & Plan: We'll assess with colonoscopy during this admission. Condition Stable. Time Spent: < 30 min Exam Sepsis Risk: No Definite Risk JONATHAN VALENCIA MD Mar 19, 2019 07:05
[2019-03-19] MEDS: METOPROLOL SUCC XL 25 MG TABCR PO SCH (08:51)
[2019-03-19] MEDS ORDERED: PANTOPRAZOLE SOD 40 MG IV VIAL IVP SCH (09:00)
[2019-03-19] MEDS ORDERED: NORMOSOL R SOLN(*) 1000 ML BAG 1,000 ML IV PRN (09:20)
[2019-03-19] MEDS ORDERED: LIDOCAINE MPF 1% 5 ML VIAL ONE (09:45)
[2019-03-19] MEDS ORDERED: PROPOFOL EMUL(*) 10MG/ML 20 ML 40 ML ONE (09:45)
--- NOTE | 2019-03-19 12:10 | NUR ---
Ambulated to bathroom to void. Gait steady. Reports feeling dizzy since she has not eaten. BP STABLE WHEN ORTHOSTATIC VSS WERE ASSESSED. VOIDED. ASSISTED BACK TO BED.
[2019-03-19] MEDS ORDERED: PROPOFOL EMUL(*) 10MG/ML 20 ML 20 ML ONE (13:01)
--- NOTE | 2019-03-19 13:47 | Medical Nutrition Therapy ---
Nutrition Anthropometrics Height (Inches): 71.00 Height (Calculated Centimeters: 180.044994 Weight (Pounds): 194 Weight (Calculated Kilograms): 87.997 BMI: 27.1 Alex Nutrition Score: Adequate Alex Nutrition Risk Score: 21 Dietary Referral Nutrition Risk Factors: Nutrition Risk Comment: Difficulty eating, teeth are rotten. Physical Findings Physical Appearance: Overweight BMI 25-29 Skin Appearance Skin Appearance: Edema Edema Location Modifier: Edema Location: Type of Edema: Degree of Edema: Gastrointestinal Symptoms GI Symtoms: Diarrhea Tube Present: Bowel Sounds: Recent Bowel Pattern: Constipated Stool Characteristics: Nutritional Diagnosis Nutritional Risk Acuity 1: GI Obstruction Nutritional Acuity: 1-High Nutrition Diagnosis: Altered GI Function Nutrition Etiology: Medications, Physiological Causes Nutrition Problem/Etiology/Sym: Altered GI function R/T medications for schizoaffective disorder and physiological causes AEB constipation, partial bowel obstruction. Energy Requirement: 1911 (MSJ) Protein Requirement: 88 (1g/kg/day) Fluid Requirement: 191 (1ml/kcal/day) Diet Type: Diet as Tolerated MAN/REG Nutrition Intervention: Cont diet as ordered Nutrition Monitoring & Eval Nutrition Goals: Eat 75-100% Meal Nutrition Follow-Up: Poor Intake Nutrition Monitoring: Weight, laboratory values, and intake RD Patient Assessment Time: [address] Assessment Type: RD Assessment Patient Nutrition Acuity: 1-High Follow Up Date: Mar 21, 2019 Nutritional Comment: 03/19/2019: Pt admitted into hospital for complaints of constipation. According to H&P, pt has had no bowel movement for four weeks. Typically, pt reports to have one bowel movement per week. Pt reports to have always had issues with constipation. Additionally, pt is on medications for schizoaffefctive disorder, which according to the H&P can slow down the intestines. Pt was assessed to be bloated, and have intermitten epigastric discomfort, but no N&V. Diet is clear liquids and pt consumed 50% of her meal yesterday. Lab values: low RBC of 3.61, and a low BUN of 6. Pt will have a colonoscopy today. Will attempt to talk to pt about a diet that may help with the constipation post-op, and once pt is on MAN. -DEYSI 03/19/2019: Diet changed to MAN at 1:43PM. - JEFFREY OVERTON Mar 19, 2019 13:17
[2019-03-19] MEDS ORDERED: OLANZapine 5 MG TAB PO SCH (16:00)
[2019-03-19] MEDS ORDERED: risperiDONE 1 MG TAB PO SCH ×2 (17:00)
[2019-03-19] MEDS ORDERED: LEVOFLOXACIN 500 MG TAB PO ONE (17:30)
[2019-03-19] MEDS: NICOTINE 21 MG/24 HR PATCH TD SCH (19:48)
[2019-03-19] MEDS: DOCUSATE SODIUM 100 MG CAP PO SCH (21:26)
[2019-03-20 03:44] VITALS: BP 108/62
--- NOTE | 2019-03-20 07:01 | Short(Outpt) Discharge Summary ---
Discharge Summary Reason for Hosp/Final Diag: (1) Chronic constipation Status: Chronic Hospital Course & Plan: 03/18/19: We'll admit to the hospital, start IV fluids, will start a bowel prep to clean out her colon. We'll plan on a colonoscopy in the next day or 2 depending on how long it takes to clean out her colon so that we can evaluate the questionable narrowing in her sigmoid colon seen on CT. We'll then need to look at a chronic bowel regimen to try to improve her bowel function. I have explained this plan as well as colonoscopy to the patient in detail as well as the alternatives, risks, and expected recovery. She indicates her understanding of this discussion and her questions have been answered. She would like to proceed with this plan including colonoscopy during this admission. 03/19/19: Doing well. Prepped. Will proceed with colonoscopy later this morning. Pt agreeable with proceeding with this plan. 03/20/19: Doing well. Colonoscopy completed yesterday. Normal colonoscopy with excellent prep. Will d/c to home today with bowel prep. (2) Abnormal CT scan, sigmoid colon Status: Acute Hospital Course & Plan: We'll assess with colonoscopy during this admission. Departure Discharge to: Home, Self Care Discharge Instructions Home Meds Active Scripts Metoprolol Succinate (METOPROLOL SUCCINATE) 25 Mg Tab.er.24h, 1 TAB PO QDAY, #30 TAB 0 Refills Prov:MOSES LIZAMA MD 11/29/17 Reported Medications Risperidone (RISPERDAL) 4 Mg Tablet, 4 MG PO DIRECTED 03/18/19 Olanzapine (ZYPREXA) 10 Mg Tablet, 10 MG PO QDAY 03/18/19 Discontinued Reported Medications Risperidone (RISPERIDONE) 3 Mg Tablet, 3 MG PO 11/29/17 Ciprofloxacin 500 Mg Tab (CIPROFLOXACIN 500 MG TAB) 500 Mg Tablet, 250 MG PO 1- 2XD, TAB 11/29/17 Phenylephrine Hcl (NASAL SPRAY) 30 Ml [place], 1 SPRAY NS PRN PRN for DISCOMFORT, SPRAY 04/09/17 Ibuprofen (MOTRIN IB) 200 Mg Tablet, 3 TAB PO Q8H PRN for PAIN 04/09/17 Follow up Referrals: General Surgery - 04/21/19 @ Surgery, General with JONATHAN VALENCIA MD You have a follow up appointment scheduled with Dr. Valencia on 04/21/19, at 9:00am. Diet: Regular Activity: As Tolerated Special Instructions: Please follow the bowel regimen instructions and let me know how it's working when I see you back at your follow up appointment. JONATHAN VALENCIA MD Mar 20, 2019 07:01
[2019-03-20] MEDS: DOCUSATE SODIUM 100 MG CAP PO SCH (08:52)
[2019-03-20] MEDS: NICOTINE 21 MG/24 HR PATCH TD SCH (08:52)
[2019-03-20] MEDS: METOPROLOL SUCC XL 25 MG TABCR PO SCH (08:52)
[2019-03-20] MEDS ORDERED: POLYETHYLENE GLYCOL 17 GM PKT PO SCH (09:00)
[2019-03-20] MEDS ORDERED: LEVOFLOXACIN 500 MG TAB PO SCH (09:00)
[2019-03-20] MEDS ORDERED: NICOTINE 21 MG/24 HR PATCH TD SCH (09:00)
[2019-03-20] MEDS ORDERED: PSYLLIUM 28% 1 PACKET PO SCH (09:00)
--- NOTE | 2019-03-20 10:21 | Antimicrobial Stewardship ---
Antimicrobial Time Out Antimicrobial Stewardship MD Service: Other (Surgeon) Indications: UTI Antimicrobial Used Levaquin po Start Date: Mar 19, 2019 Culture Results: Yes (Urine showed few bacteria) Eligible for PO Conversion Eligable for PO Conversion: Yes (On po) Comments Comments Treat for at least 3 days. SARAHI CA Mar 20, 2019 10:21
== END 2019-03-20 10:05 | disposition home or self-care (01) ==
LOC: ER 13:15 → MED 16:18 → INTOOBSV 16:18
PROVIDERS: ADMIT Surgery; ATTEND Surgery
DX: K56.690 Other partial intestinal obstruction (principal)
CPT/HCPCS: 00811; 36415; 45378; 74177; 81001; 85025; 99284; C9113; G0378; J2001; J2704; J7030; Q9967; 82040; 82247; 82310; 82374; 82435; 82565; 82947; 84075; 84132; 84155; 84295; 84450; 84460; 84520